=== PATIENT | female | born 1975 | race Caucasian/White ===

== ENCOUNTER 2018-04-24 08:22 | Emergency (ER) | payer OTHER ==
[2018-04-24 08:47] LABS: BILIRUBIN,URINE NEGATIVE (NEGATIVE); GLUCOSE, URINE (UA) NEGATIVE (NEGATIVE); KETONES,URINE (UA) NEGATIVE (NEGATIVE); LEUKOCYTE ESTERASE, URINE TRACE (NEGATIVE); NITRITE,URINE NEGATIVE (NEGATIVE); OCCULT BLOOD,URINE TRACE-INTA (NEGATIVE); PH,URINE 6.5 PH (5.0-7.5); PROTEIN,URINE NEGATIVE (NEGATIVE); UROBILINOGEN,URINE 0.2 (NORMAL) E.U./dL (NORMAL)
[2018-04-24 08:48] LABS: CLARITY,URINE HAZY (CLEAR)
[2018-04-24 08:55] LABS: BACTERIA,URINE Rare /HPF (None Seen); RBC,URINE 0-5 /HPF (0-5); SQUAMOUS EPITHELIAL CELL,UR MOD Squamous (<= Few)
[2018-04-24] MEDS ORDERED: IPRATROPIUM/ALBUTEROL 3 ML NEB INH STA (09:28)
[2018-04-24] MEDS ORDERED: DEXAMETHASONE 10 MG/ML VIAL PO STA (09:28)
--- NOTE | 2018-04-24 09:31 | ED Physician Documentation ---
PD HPI URI - Stated complaint Stated Complaint: SORE THROAT/EAR PAIN - Chief complaint Chief Complaint: Heent - History obtained from History obtained from: Patient - History of Present Illness Timing - onset: How many days ago (10) Timing duration: Days (10) Timing details: Abrupt onset, Still present, Waxing and waning Associated symptoms: Fever, Nasal congestion, Rhinorrhea, Sore throat, Swollen nodes, Productive cough, Dyspnea Improves by: Rest, Medication Worsened by: Activity, Breathing, Position Similar symptoms before: Diagnosis (viral bronchitis) Recently seen: Not recently seen - Additional information Additional information: 42-year-old female history of type 2 diabetes and hypertension has developed a cough and congestion 10 days ago with a rapid onset she also has some conjunctival injection associated with this. She is had a bimodal illness that she has developed cough with productive of sputum and the seem to get somewhat better but now has worsening sore throat and continued sputum production. She has had this happen to her once about 3 years ago where it took her 3 weeks to get over a viral URI. She has not used an inhaler previously. Review of Systems Constitutional: reports: Fever, Myalgias, Fatigue Eyes: denies: Decreased vision Ears: denies: Ear pain Nose: reports: Rhinorrhea / runny nose, Congestion Throat: reports: Sore throat Cardiac: denies: Chest pain / pressure, Palpitations Respiratory: reports: Dyspnea, Cough GI: denies: Abdominal Pain, Nausea, Vomiting : denies: Dysuria, Frequency PD PAST MEDICAL HISTORY - Past Medical History Cardiovascular: Hypertension Endocrine/Autoimmune: Type 2 diabetes, HyPOthyroidism Psych: Depression - Past Surgical History Past Surgical History: Yes - Present Medications Home Medications: Ambulatory Orders Medication Instructions Recorded Confirmed Atenolol 25 mg PO DAILY 09/05/13 04/24/18 Levothyroxine [Synthroid] 137 mcg PO QDAC 09/05/13 04/24/18 Lisinopril 20 mg PO DAILY 09/05/13 04/24/18 Norethindrone-Ethinyl Estrad 1 tab PO DAILY 09/05/13 04/24/18 [Norinyl 1+35] Antidepressant 03/29/15 03/29/15 Azithromycin [Zithromax] 250 mg PO DAILY #6 tablet 04/24/18 Benzonatate [Tessalon Perle] 100 - 200 mg PO TID PRN #30 capsule 04/24/18 Venlafaxine [Effexor] 37.5 mg PO DAILY 04/24/18 04/24/18 - Allergies Allergies/Adverse Reactions: Allergies Allergy/AdvReac Type Severity Reaction Status Date / Time No Known Drug Allergies Allergy Verified 04/24/18 08:32 - Social History Does the pt smoke?: No Smoking Status: Never smoker Does the pt drink ETOH?: No Does the pt have substance abuse?: No - Immunizations Immunizations are current?: Yes - POLST Patient has POLST: No PD ED PE NORMAL - Vitals Vital signs reviewed: Yes (hypertensive ) - General General: Alert and oriented X 3, No acute distress, Well developed/nourished - HEENT HEENT: Atraumatic, PERRL, EOMI, Ears normal, Other (dry mucous membranes ) - Neck Neck: Supple, no meningeal sign, No bony TTP - Cardiac Cardiac: RRR, No murmur - Respiratory Respiratory: No respiratory distress, Other (diminished breath sounds ) - Abdomen Abdomen: Soft, Non tender - Back Back: No CVA TTP, No spinal TTP - Derm Derm: Normal color, No rash - Extremities Extremities: No deformity, No edema - Neuro Neuro: Alert and oriented X 3, layout artist 2-12 intact, No motor deficit, No sensory deficit, Normal speech Eye Opening: Spontaneous Motor: Obeys Commands Verbal: Oriented GCS Score: 15 - Psych Psych: Normal mood, Normal affect Results - Vitals Vitals: Vital Signs - 24 hr 04/24/18 04/24/18 08:30 09:40 Temperature 35.9 C L Heart Rate 79 71 Respiratory 18 16 Rate Blood Pressure 179/109 H O2 Saturation 97 Oxygen O2 Source Room air - Labs Labs: Laboratory Tests 04/24/18 04/24/18 08:30 08:30 Urine Color YELLOW Urine Clarity HAZY Urine pH 6.5 Ur Specific [place] 1.020 Urine Protein NEGATIVE Urine Glucose (UA) NEGATIVE Urine Ketones NEGATIVE Urine Occult Blood TRACE-INTA Urine Nitrite NEGATIVE Urine Bilirubin NEGATIVE Urine Urobilinogen 0.2 (NORMAL) Ur Leukocyte Esterase TRACE H Urine RBC 0-5 Urine WBC 4-5 Ur Squamous Epith Cells MOD Squamous H Urine Bacteria Rare Ur Microscopic Review INDICATED Urine Culture Comments NOT INDICATED Group A Strep Rapid Negative - Rads (name of study) 2 view chest Radiology: Prelim report reviewed (Impression: No airspace consolidation.), EMP read indepedently, See rad report PD MEDICAL DECISION MAKING - ED course Complexity details: considered differential, d/w patient ED course: 42-year-old female with a history of diabetes and hypertension has developed a cough and congestion she is producing phlegm and is short of breath. She has a negative rapid strep negative negative HEENT exam and she is administered dexamethasone as well as a DuoNeb treatment. Departure - Departure Disposition: 01 Home, Self Care Clinical Impression: Bronchitis Condition: Stable Instructions: ED Bronchitis Asthmatic Follow-Up: JAMIE BOONE [Primary Care Provider] - Prescriptions: Azithromycin [Zithromax] 250 mg PO DAILY #6 tablet Benzonatate [Tessalon Perle] 100 - 200 mg PO TID PRN #30 capsule PRN Reason: Cough Forms: Activity restrictions
--- NOTE | 2018-04-24 10:17 | XRAY Report ---
Reason: cough soa Procedure Date: 04/24/2018 Accession Number: [id number] / [id number] Procedure: XR - Chest 2 View X-Ray CPT Code: 77018 FULL RESULT: EXAM: CHEST RADIOGRAPHY EXAM DATE: 04/24/2018 10:05 AM. CLINICAL HISTORY: Cough, short of air. COMPARISON: CHEST 2 VIEW PA/LAT 03/29/2015 12:48 PM. TECHNIQUE: 2 views. FINDINGS: Lungs/Pleura: No focal opacities evident. No pleural effusion. No pneumothorax. Normal volumes. Mediastinum: Heart and mediastinal contours are unchanged, no cardiomegaly. Other: Median sternotomy wires are redemonstrated. IMPRESSION: No airspace consolidation. RADIA
[2018-04-24 11:05] VITALS: BP 137/78
== END 2018-04-24 11:04 | disposition home or self-care (01) ==
LOC: ED 08:22
DX: J40 Bronchitis, not specified as acute or chronic (principal); E11.9 Type 2 diabetes mellitus without complications; I10 Essential (primary) hypertension; E03.9 Hypothyroidism, unspecified
CPT/HCPCS: 71046; 81001; 81003; 87070; 87086; 87430; 94640; 99283

== ENCOUNTER 2022-08-01 08:00 | Outpatient (CLI) | payer OTHER ==
--- NOTE | 2022-08-01 13:46 | XRAY Report ---
PROCEDURE: Hand 3 View LT INDICATIONS: LEFT HAND PAIN TECHNIQUE: 4 views of the hand(s) acquired. COMPARISON: None. FINDINGS: Bones: No fractures or dislocations. No suspicious bony lesions. Soft tissues: No suspicious soft tissue calcifications or masses. IMPRESSION: No acute bony abnormality. Reviewed by: Kirstin Chapman MD on 08/01/2022 1:45 PM PDT Approved by: Kirstin Chapman MD on 08/01/2022 1:45 PM PDT Station ID: [id number]
== END 2022-08-01 23:59 | disposition home or self-care (01) ==
LOC: DI.WOS 08:00
PROVIDERS: ATTEND Orthopaedic Surgery
DX: M79.642 Pain in left hand (principal)